=== PATIENT | female | born 1940 | race Caucasian/White ===

== ENCOUNTER 2020-01-07 07:48 | Inpatient (IN) | payer OTHER, MEDICAID ==
[~2020-01-07] VITALS: Ht 152.4 cm; Wt 79.4 kg
[~2020-01-07 07:48] MED LIST: ASPIR 8181 MG PO; COZAAR50 M1 PO; ELIQUIS5 MG PO; METFORMIN HCL500 M4 PO
[2020-01-07 07:52] VITALS: Ht 152.4 cm; Wt 79.4 kg
--- NOTE | 2020-01-07 08:02 | NUR ---
BIB DAUGHTER WITH SUDDEN ONSET ABDOMINAL PAIN. SEEN IN ED FOR PNEUMONIA RECENTLY. ALSO STATES LEG AND FEET SWELLING. COMFORT MEASURES AND SUPPORTIVE CARE INITIATED. PREP FOR ERMD MSE.
--- NOTE | 2020-01-07 09:18 | NUR ---
ST CATH URINE OBTAINED AND SENT. COVID NASOPHARYNGEAL SWAB OBTAINED AND SENT. PT TO CT. TO CONTINUE TO MONITOR,
--- NOTE | 2020-01-07 09:35 | NUR ---
PT RETURNED FROM CT.
[2020-01-07 09:38] LABS: ALKALINE PHOSPHATASE 341 U/L (46-116); ALT/SGPT 86 U/L (14-59); AST/SGOT 146 U/L (15-37); BILIRUBIN TOTAL 1.98 mg/dL (0.20-1.00); CALCIUM 8.3 mg/dL (8.5-10.1); CARBON DIOXIDE 19.1 mmol/L (21-32); CHLORIDE SERUM 96 mmol/L (98-107); CREATININE SERUM 1.2 mg/dL (0.6-1.0); GLUCOSE SERUM 111 mg/dL (74-106); LIPASE 75 IU/L (73-393); SODIUM SERUM 125 mmol/L (136-145); TOTAL PROTEIN, SERUM 7.5 g/dL (6.4-8.2)
[2020-01-07 09:43] LABS: BASOPHIL % 0.2 % (0-2); RED CELL DISTRIBUTION WIDTH 18.1 % (11.5-14.5)
[2020-01-07 09:46] LABS: ALBUMIN 2.2 g/dL (3.4-5.0); POTASSIUM SERUM 5.7 mmol/L (3.5-5.1)
[2020-01-07 10:28] LABS: PLATELET COUNT 26 x10^3mcL (130-400)
--- NOTE | 2020-01-07 11:10 | NUR ---
PATIENT ARRIVED FROM ER [facility]. PATIENT APPEARED TO BE IN PAIN. A&OX4, FOLLOWS COMMANDS AND COOPERATES WELL. DENIES CHEST PAIN AT THIS TIME. PERIPHERAL PULSES ALAPBLE W/ +2 PITTING EDEMA BLE. LUNG SOUNDS DIMINISHED BILATERALLY, ON RA, O2 SAT 94%, DENIES SOB. NORMOACTIVE BSX4, ABD SOFT AND FLAT. VOIDS USING RESTROOM, ALTHOUGH STATES GENERALIZED WEAKNESS. SKIN IS INTACT. ABD PAIN, WILL GIVE PAIN MEDICATION IF WARRANTED BY BLOOD PERSSURE. IV SITE ON LEFT HAND IS CDI RUNNING NS AT 70 ML/HR. WILL CONTINUE TO MONITOR.
[2020-01-07 11:39] VITALS: BP 96/69
--- NOTE | 2020-01-07 13:10 | NUR ---
SPOKE TO AEROSPACE CONTROL AND WARNING SYSTEMS INQUIRING FOR ANOTHER PAIN MED OTHER THAN MORPHINE SINCE HER BP RUNS LOW. [employer] [employer] STATED THAT SHE IS AWAITING RECOMMENDATION WITH PHARMACY DUE TO THE PATIENT'S LIVER HISTORY. INQUIRED WITH [employer] IF SHE WOULD WANT TO ORDER AN ASCITES EVAL PER CT ABD STATED THAT PATIENT HAS MILD TO MODERATE ASCITES. [facility] [employer] ORDERED ASCITES EVAL. NO FURTHER ORDERS AT THIS TIME. WILL CONTINUE TO MONITOR.
--- NOTE | 2020-01-07 15:26 | NUR ---
DR. HOWARD INQUIRED OF PATIENT STATUS. STATED THAT SHE WANTED BNP AND BMP TO BE REDRAWN STAT. ORDERED LOKELMA ONE TIME DOSE AND PROAMATINE TO BE ORDERED TWICE A DAY. NO FURTHER ORDERS AT THIS TIME, WILL CONTINUE TO MONITOR.
[2020-01-07 16:11] LABS: CARBON DIOXIDE 18.2 mmol/L (21-32); CHLORIDE SERUM 98 mmol/L (98-107); CREATININE SERUM 1.1 mg/dL (0.6-1.0); GLUCOSE SERUM 112 mg/dL (74-106); SODIUM SERUM 126 mmol/L (136-145)
[2020-01-07 16:14] LABS: POTASSIUM SERUM 5.7 mmol/L (3.5-5.1)
--- NOTE | 2020-01-07 16:22 | NUR ---
NOTIFIED BY LAB THAT K+ IS A CRITICAL LAB VALUE OF 5.7. NOTIFIED STRAIGHTENER THAT LOKELMA WAS ALREADY OREDERED BY DR. HOWARD. STRAIGHTENER ORDERED TO GIVE LOKELMA IS SCHEDULED. NO FURTHER ORDERS AT THIS TIME. WILL CONTINUE TO MONITOR.
[2020-01-07 17:40] VITALS: BP 102/73
--- NOTE | 2020-01-07 18:03 | NUR ---
INQUIRED WITH DR. HERBERT IF HE WOULD WANT TO ORDER A FOLLOW UP TROPONIN SINCE PATIENT'S TROPONIN THIS MORNING WAS 0.486. DR. HERBERT ORDERED ROUTINE TROPONIN LAB DRAW, AND EKG. TROPONIN ALSO ORDERED FOR 0200 01/08/20. NO FURTHER ORDERS AT THIS TIME.
--- NOTE | 2020-01-07 18:58 | NUR ---
RECEIVED CRITICAL LAB VALUE TROPONIN 0.410. WILL ENDORSE TO UPSCALE SECURITY OFFICER NURSE.
--- NOTE | 2020-01-07 19:39 | NUR ---
SPOKE TO DR. ESPINOZA. MADE AWARE OF TRENDING TROP, PLT 26, ORDER FOR ELIQIUIS AND PENDING LOVENOX TONIGHT. ASKED IF OKAY TO GIVE ANTICOAGULATION DESPITE PLT 26. STATED WILL CONSULT DR. LOJA AND TO HAVE RN ASK NIGHT TIME NANNY FOR RECOMMENDATIONS IN REGARDS TO ANTICOAGULATION.
--- NOTE | 2020-01-07 19:40 | NUR ---
REC'D PT FROM DAY NURSE. PT RESTING IN BED. AAOX4, SPEECH CLEAR, FOLLOWS COMMANDS. TELE 13. DENIES CP, DIZZINESS, OR PALPITATIONS. DENIES RESP DISTRESS OR SOB. BREATHING EVEN/UNLABORED ON RA. PITTING EDEMA BLE, ELEVATED WITH PILLOWS. ABD SOFT/DISTENDED. C/O 03/11 RUQ ABD PAIN AND TENDERNESS, WILL MEDICATE. DENIES N/V. VOIDING FREELY. GEN WEAKNESS. AMB WITH ASSIST. REPOSITIONS SELF. IV TO L THUMB PATENT AND INFUSING, SITE WNL. CALL LIGHT WITHIN REACH, BED AT LOWEST POSITION. WILL CONTINUE TO MONITOR.
--- NOTE | 2020-01-07 19:49 | NUR ---
SPOKE TO DR. ESPINOZA. STATED HE CONTACTED PHARMACY TO HAVE LOVENOX D/C'D. OKAY TO GIVE LOVENOX. RN DOES NOT HAVE TO CONTACT BINDER TECHNICIAN AT THIS TIME. MADE AWARE PT DOES NOT HAVE ANY ABX WITH PNA AND WBC 15.0.
--- NOTE | 2020-01-07 20:30 | NUR ---
ASSISTED PT TO BSC. GEN WEAKNESS. PT VOIDING AND HAD A MODERATE SIZED FORMED STOOL. ASSISTED BACK IN BED. BLE ELEVATED WITH PILLOWS. PT C/O RUQ ABD PAIN 03/11. MORPHINE GIVEN PER ORDER. CALL LIGHT WITHIN REACH, BED AT LOWEST POSITION.
[2020-01-07 20:56] VITALS: BP 94/59
--- NOTE | 2020-01-07 22:11 | NUR ---
SPOKE TO DR. ESPINOZA. INQUIRED REGARDING ADDING LASIX D/T 2+ BLE PITTING EDEMA WITH BNP 393. STATED WILL NOT ORDER NOW D/T EDEMA SECONDARY LIVER CA VERSUS CARDIC.
--- NOTE | 2020-01-08 01:23 | NUR ---
PT RESTING IN BED WITH EYES CLOSED. NO SIGNS OF DISTRESS OR PAIN NOTED. BREATHING EVEN/UNLABORED ON RA. HOB UP. CALL LIGHT WTIHIN REACH, BED AT LOWEST POSITION. WILL CONTINUE TO MONITOR.
--- NOTE | 2020-01-08 02:50 | NUR ---
SPOKE TO DR. ESPINOZA. MADE AWARE DR. HOWARD HAD PUT ORDERS IN FOR LOKELMA NOW. FIRST DOSE OF LOKELMA GIVEN 01/06 @ 1630 (K 5.9 @ 1530). K HAS NOT BEEN RECHECKED S/P LOKELMA. ASKED RESIDENT IF HE WOULD LIKE TO ADMINISTER LOKELMA PRIOR TO RECHECKING K. ORDERED TO HOLD FOR NOW AND WAIT FOR AM LABS.
[2020-01-08 04:04] LABS: BASOPHIL % 0.4 % (0-2)
[2020-01-08 04:12] LABS: RED CELL DISTRIBUTION WIDTH 16.7 % (11.5-14.5)
[2020-01-08 04:23] LABS: CALCIUM 8.1 mg/dL (8.5-10.1); CARBON DIOXIDE 22.3 mmol/L (21-32); CHLORIDE SERUM 97 mmol/L (98-107); CREATININE SERUM 1.2 mg/dL (0.6-1.0); GLUCOSE SERUM 112 mg/dL (74-106); SODIUM SERUM 127 mmol/L (136-145)
[2020-01-08 04:25] LABS: POTASSIUM SERUM 5.9 mmol/L (3.5-5.1)
[2020-01-08 04:35] LABS: PLATELET COUNT 23 x10^3mcL (130-400)
[2020-01-08 06:55] VITALS: BP 125/72
--- NOTE | 2020-01-08 06:58 | NUR ---
PT AWAKE AND RESTING IN BED. DENIES ANY PAIN CURRENTLY. BREATHING EVEN/UNLABORED ON RA. ASSISTED PT TO BSC TO VOID. DARK [place] URINE. NO SIGNIFICANT CHANGES DURING SHIFT. PENDING COVID RESULTS. CALL LIGHT WITHIN REACH, BED AT LOWEST POSITION. WILL ENDORSE TO DAY NURSE.
--- NOTE | 2020-01-08 07:30 | NUR ---
PT ENDORSE TO ME THIS MORNING, LAYING IN BED RESTING, AA/O X4 BELIZEAN SPKING, REAMINS ON ISOLATION.BREATHING EVEN AND UNLABORED ON RA/ NO ACUTE RESP DISTRESS OR SOB NOTED. TELE 13 NSR / DENIES ANY CP OR PRESSURE. EDEMA NOTED BLE +2 NOTED /REMAINS ON ELIQUIS. BOWEL SOUNDS ACTIVE IN ALL FOUR QUADS, LAST /7 FORMED. VOIDS FREELY/ KNOWS TO CALL FOR ASSIST/ FWW AT HOME. IV TO THE LW INTACT AND PATENT/ WILL CONTINUE TO MONITOR.
[2020-01-08 10:00] VITALS: BP 124/67
--- NOTE | 2020-01-08 10:30 | NUR ---
PER MORGUE KEEPER JOCE CHERRY WAS GIVEN THIS AM
[2020-01-08 11:30] LABS: CALCIUM 8.4 mg/dL (8.5-10.1); CHLORIDE SERUM 95 mmol/L (98-107); CREATININE SERUM 1.3 mg/dL (0.6-1.0); GLUCOSE SERUM 112 mg/dL (74-106); POTASSIUM SERUM 4.8 mmol/L (3.5-5.1); SODIUM SERUM 126 mmol/L (136-145)
[2020-01-08 13:09] VITALS: BP 110/76
--- NOTE | 2020-01-08 14:00 | NUR ---
PT TOLERATED 100% OF LUNCH,ASSISTED PT WITH ADLS, CHANGED BED PAD TO BED AND BLANKETS. WILL CONTINUE TO MONITOR.
--- NOTE | 2020-01-08 17:03 | NUR ---
PT C/O BLE PAIN 5/10, MEDICATED PER EMAR. WILL CONTINUE TO MONITOR.
[2020-01-08 18:02] VITALS: BP 115/73
--- NOTE | 2020-01-08 18:30 | NUR ---
NO ACUTE CHANGES AT THIS TIME, NO ACUTE RESP DISTRESS OR SOB NOTED, SATING AT 97% RA/ APPLIED 1L NC FOR COMFORT. IV TO THE L WRIST INTACT AND PATENT / NO REDNESS OR SWELLING NOTED. WILL ENDORSE TO INCOMING RN.
--- NOTE | 2020-01-08 21:10 | NUR ---
PT IN NO ACUTE DISTRESS. EVEN AND UNLABORED BREATHING, ROOM AIR. PT DENIES ANY PAIN, CHEST PAIN AT THIS MOMENT. DENIES ANY SOB. PT WAS ASSISTED TO REPOSITION. TELE #13, HR 85, NSR. DROPLET AND CONTACT PRECAUTIONS IN PLACE. LEFT WRIST IV PATENT AND INFUSING WELL. BED IN LOWEST POSITION. CALL LIGHT WITHIN REACH.
[2020-01-08 22:08] VITALS: BP 103/61
--- NOTE | 2020-01-09 01:43 | NUR ---
PT REPOSITIONED IN BED, STILL NOT COMFORTABLE SO SHE ASKED TO SIT AT BEDSIDE FOR A WHILE. PATIENT WAS MADE AWARE TO USE CALL [place] WHEN SHE IS READY TO BE PUT BACK INTO BED.
--- NOTE | 2020-01-09 04:30 | NUR ---
PT HAS A NOSE BLEED. PAGED DR. ESPINOZA, WAITING ON A CALL BACK. WILL CONTINUE TO MONITOR.
--- NOTE | 2020-01-09 04:44 | NUR ---
SPOKE TO DR ESPINOZA ABOUT PTS BLOODY NOSE. HE WAS ALSO INFORMED OF HER PREVIOUSLY COUGHING UP BLOOD. REASSESSED PT AND SHE IS NOT ACTIVELY BLEEDING. DR ESPINOZA ORDERED TO PACK PTS NOSE IF SHE BEGINS TO BLEED AGAIN.
--- NOTE | 2020-01-09 05:26 | NUR ---
I HAVE REVIEWED THE DATA COLLECTION BY liane (NAME): leobardo ruff ENTERED ON (DATE/TIME):01/09/2020 0230h I CONCUR WITH THE DATA AND ANY EXCEPTIONS OR COMMENTS ARE LISTED BELOW:
[2020-01-09 06:51] VITALS: BP 91/63
[2020-01-09 08:14] LABS: BASOPHIL % 0.9 % (0-2)
[2020-01-09 08:34] LABS: CARBON DIOXIDE 23.3 mmol/L (21-32); CHLORIDE SERUM 98 mmol/L (98-107); CREATININE SERUM 1.3 mg/dL (0.6-1.0); GLUCOSE SERUM 105 mg/dL (74-106); POTASSIUM SERUM 4.4 mmol/L (3.5-5.1); RED CELL DISTRIBUTION WIDTH 18.8 % (11.5-14.5); SODIUM SERUM 130 mmol/L (136-145)
[2020-01-09 09:49] VITALS: BP 94/65
[2020-01-09 10:35] LABS: PLATELET COUNT 14 x10^3mcL (130-400)
--- NOTE | 2020-01-09 12:51 | NUR ---
RESTING IN NO ACUTE DISTRESS, STILL HAVING NOSE BLEED ON AND OFF. MD AWARE, ICE MARE APPLIED WITH RELIEF. VS WNL. IVF INFUSING WELL.
[2020-01-09 12:52] VITALS: BP 98/64
--- NOTE | 2020-01-09 15:49 | NUR ---
Initial Nutrition Assessment: 240T/B MYRA VALLECILLO 79F HR IA Dx: Hyponatremia, hyperkalemia, metastatic liver cancer PMHx: HTN, Bilateral PE, Liver Cancer, T2DM PSHx: none noted Labs: (01/08) BUN 39H, Cr 1.3, Na 130L, Ca 8.0L, (01/06) Bilirubin 1.98H, AST 146H, ALT 86H, Alk ph 341H Meds: Eliquis, Pro-amatine, Rocephin, Sodium bicarbonate, Sodium chloride, Zotrhomax PRN meds: D50%, Humulin, Morphine, Ultram, Ventolin, Zofran Diet: CCHO 60 PO intake since admission: No entry Ht: 152.4cm/60in Wt: 65.5kg/144.10lbs BMI: 27.3 Bed scale: Not able to obtain IBW: 45kg/100lbs %IBW: 146% ABW: 50kg UBW: not able to obtain Age: 79 Food Allergies: not able to obtain Edema: +2 edema to BLE Last BM: 01/06 Skin: skin intact Alex: 16 Per H and P (01/06), This is a 79-year old female who is well known to me from previous admission. Patient was recently discharged from this hospital on 11/16/2019 who was found to have bilateral PE. Patient kept on heparin drip. Patient was also noted with liver mass and follows up with outpatient oncologist. Patient presented to the ER with complains of abdominal pain associated with distention denies any nausea or vomiting. Patient is scheduled to have a follow up appointment with oncologist tomorrow however, patient could not tolerate the pain. Patient denies any fevers, short of breath. When patient arrived in the ER CT abdomen showed Peripheral groundglass in the bilateral lung bases concerning for pulmonary infarction or possible atypical infection (COVID-19). Patient denies any recent travel outside of the [place] or sick contacts. RD Note (01/08) Per progress note (01/07), pt was on room air, and had an episode of epistaxis this morning. Pt is a COVID r/o, and ascites was noted in progress note. Pt was in isolation, talked to pt's primary RN for information. Per RN, pt did not exhibit GI distress, but pt had poor appetite, and she had only a small portion of each kind of food. RN also reported that pt might have some missing teeth. Problem with: N/V/D/C: None per RN Problems with: Chewing: Pt has missing teeth Swallowing: No per RN Current appetite: Poor per RN Recent wt change: not able to obtain %wt change: not able to obtain Height: not able to obtain Vitamin/Supplement use: not able to obtain Special diet at home: not able to obtain Physical activity: not able to obtain Nutrition education given (specify specific nutrition education and handout given): n/a Food-drug interactions? Education given? n/a Estimated Nutritional Needs Based on current body weight (65kg) Energy: 6297-9615 kcal/day (25-30 kcal/kg for maintenance) Protein: 65-97g/day (1-1.5g/kg for LBM preservation and liver CA) Fluid: 1097-7663 mL/day (25-35 mL/kg) Nutrition Diagnosis: 1. Inadequate energy and protein intake r/t poor PO intake a/e/b pt has poor PO intake per RN. 2. Altered nutrition related lab values r/t fluid imbalance and pathophysiological cause a/e/b +2 edema to BLE, decreased Na, CL level. Intervention 1. Recommend continue CCHO 60 diet 2. Recommend Glucerna TID for poor PO intake. It will provide additional 660kcal and 30g protein. Monitor/Evaluate Goal: PO intake at least 75% of estimated needs Monitor: PO intake, Labs, GI function, Body weight F/U in 2-3 days as risk 01/10-
--- NOTE | 2020-01-09 15:49 | NUR ---
1. Recommend continue CCHO 60 diet 2. Recommend Glucerna TID for poor PO intake. It will provide additional 660kcal and 30g protein.
[2020-01-09 17:59] VITALS: BP 103/64
--- NOTE | 2020-01-09 18:15 | NUR ---
REMAINS IN NO DISTRESS, AWAKE AND ALERT. MILD SOB NOTED WITH ACTIVITIES. NO CHANGES IN VS. IVF INFUSING TO KVO AND SITE CLEAR. NO C/O PAIN OR DISCOMFORT AT THIS TIME. PM CARE DONE. CALL LIGHT WITHIN REACH.
--- NOTE | 2020-01-09 19:40 | NUR ---
RECEIVED PT FROM PREVIOUS SHIFT. PT IN NO ACUTE DISTRESS. EVEN AND UNLABORED BREATHING, ROOM AIR/NC 1L. PATIENT ALERT, AWAKE, ORIENTED X4. IV LW PATENT, INTACT, INFUSING WELL. NO REDNESS OR EDEMA AT IV SITE. NS @ 30 ML/HR. PT STILL REMAINS WITH GERNERALIZE WEAKNESS, SHE WAS INSRUCTED TO USE CALL LIGHT NEEDED. PT HAS OCCASIONAL NOSE BLEED. NO ACTIVE BLEEDING AT THIS TIME. DR ESPINOZA AWARE. MORNING SHIFT INSTRUCTED DR EMMIE CHERRY BE HELD. WILL HOLD PER [facility] DR RIDLEY. PT DENIES ANY PAIN, CHEST PAIN AT THIS MOMENT. BED IN LOWEST POSITION AND CALL LIGHT WITHIN REACH.
[2020-01-09 20:10] VITALS: BP 99/63
--- NOTE | 2020-01-10 00:25 | NUR ---
PT REMAINS IN NO ACUTE DISTRESS. NO C/O CHEST PAIN, PAIN AT THIS MOMENT. NO ACTIVE BLEEDING AT THIS MOMENT. DROPLET AND CONTACT PRECUATIONS REMAIN IN PLACE. BED IN LOWEST POSITION, CALL LIGHT WITHIN REACH.
--- NOTE | 2020-01-10 05:38 | NUR ---
PT WAS GIVEN A BED BATH. CHANGED ALL LINEN. NOSE IS NO LONGER BLEEDING AT THIS MOMENT. PT IN NO ACUTE DISTRESS. EVEN AND UNLABORED BREATHING. IV PATENT AND INFUSING WELL. NO REDNESS AT IV SITE. SHE IS CURRENTLY ON NC 1L, 98%. NO C/O CHEST PAIN, PAIN, SOB AT THIS MOMENT. WILL ENDORSE CARE TO INCOMING NURSE. WILL CONTINUE TO MONITOR.
[2020-01-10 05:43] VITALS: BP 109/70
--- NOTE | 2020-01-10 05:43 | NUR ---
I HAVE REVIEWED THE DATA COLLECTION BY ZACK (NAME): MARGAUX FAYE ENTERED ON (DATE/TIME):01/10/2020 0023H I CONCUR WITH THE DATA AND ANY EXCEPTIONS OR COMMENTS ARE LISTED BELOW:
[2020-01-10 06:43] LABS: CALCIUM 8.2 mg/dL (8.5-10.1); CARBON DIOXIDE 20.9 mmol/L (21-32); CHLORIDE SERUM 99 mmol/L (98-107); CREATININE SERUM 1.3 mg/dL (0.6-1.0); GLUCOSE SERUM 110 mg/dL (74-106); POTASSIUM SERUM 4.2 mmol/L (3.5-5.1); SODIUM SERUM 130 mmol/L (136-145)
--- NOTE | 2020-01-10 07:30 | NUR ---
RECEIVED PT FROM BRANCH OPERATIONS SPECIALIST. PT AWAKE, ALERT A/OX4. DENIED HEADACHE. PT ON ROOM AIR WITH NO RESP DISTRESS NOTED. O2 SAT 95%. PT DENIES CHEST PAIN. IV ACCESS LW 22G, CDI INFUSING NS AT 30ML/HR. PERIPHERAL PULSES TO BUE PALPABLE, 4+ PITTING EDEMA NOTED TO BLE. 3+ EDEMA TO BUE. PT NOTED TO HAVE DISTENDED ABDOMEN WITH ACTIVE BS NOTED. DENIES ISSUES WITH ELIMINATION. PT INCONTINENT OF URINE. PT NOTED TO HAVE GENERALIZED WEAKNESS. DENIES PAIN AT THIS TIME. SAFETY MEASURES IN PLACE, BED LOW AND LOCKED. CALL LIGHT WITHIN REACH.
[2020-01-10 07:41] LABS: BASOPHIL % 0.4 % (0-2); RED CELL DISTRIBUTION WIDTH 18.4 % (11.5-14.5)
--- NOTE | 2020-01-10 07:47 | NUR ---
LAB CALLED, CRITICAL PLATELETS 13
[2020-01-10 07:48] LABS: PLATELET COUNT 13 x10^3mcL (130-400)
--- NOTE | 2020-01-10 08:10 | NUR ---
ZACK PRETTY AWARE OF PLATELETS
--- NOTE | 2020-01-10 08:48 | NUR ---
DR GARCIA AT BEDSIDE. AWARE PT PLATELETS 13, VERBAL ORDER GIVEN TO TRANSFUSE 2 UNITS PLATELETS.
[2020-01-10 09:30] VITALS: BP 89/62
--- NOTE | 2020-01-10 09:35 | NUR ---
PT BP 89/62, SCHEDULED MIDODRINE ADMINISTERED AT THIS TIME ORDERED. PT AWAKE, ALERT. WILL MONITOR.
--- NOTE | 2020-01-10 09:58 | NUR ---
DUE MEDICATIONS ADMINISTERED. PT TOLERATED WELL. PT STATES SHE WANTS HER DAUGHTER IN LAW TO SIGN CONSENT FOR PLATELET TRANSFUSION. PT INCONTINENT OF URINE. PT CLEANED AND REPOSITIONED. PT HAD NOSE BLEED.
--- NOTE | 2020-01-10 10:14 | NUR ---
PATIENT WANTS DAUGHTER IN LAW, MYRA SMITH TO GIVE CONSENT FOR TRANSFUSION. CONSENT TO TRANSFUSE RECEIVED OVER THE PHONE WITH SECOND RN, BENY. PATIENT AWARE OF PROCEDURE.
[2020-01-10 12:00] VITALS: BP 107/71
--- NOTE | 2020-01-10 12:00 | NUR ---
[facility] CALLED SAYS NO PLATELETS ARE AVAILABLE FOR THIS PATIENT. ZACK ENVIRONMENTAL STUDIES FACULTY MEMBER AWARE. PT CONSTIPATED, ZACK AWARE.
--- NOTE | 2020-01-10 15:18 | NUR ---
PT UP IN WHEELCHAIR AT BEDSIDE. PT COMPLAINING OF PAIN TO RUQ ABDOMEN. ULTRAM ADMINISTERED ORDERED PRN. WILL MONITOR.
[2020-01-10 15:30] VITALS: BP 108/74
--- NOTE | 2020-01-10 16:49 | NUR ---
PT PUT BACK TO BED. DUE MEDICATIONS ADMINISTERED. PT REPORTS PAIN IS TOLERABLE AT THIS TIME. NO ACUTE DISTRESS NOTED. SAFETY MAINTAINED.
--- NOTE | 2020-01-10 18:51 | NUR ---
PT NOTED TO HAVE CONSISTENT NOSEBLEED. SMALL AMOUNTS THROUGHOUT DAY. ZACK MADE AWARE THIS AM. AWAITING PLATELETS FOR TRANSFUSION. ALL NEEDS TENDED TO THROUGHOUT SHIFT. WILL CONTINUE TO MONITOR AND ENDORSE CARE TO INTERNATIONAL TRADE TEACHER.
[2020-01-10 19:20] VITALS: BP 105/65
[2020-01-11] VITALS (8 sets, daily range): BP systolic 102–111; BP diastolic 58–75
--- NOTE | 2020-01-11 01:25 | NUR ---
FIRST UNIT OF PLATELETS INITIATED, VSS, WILL MONITOR FOR 15 MINIUTES
--- NOTE | 2020-01-11 01:40 | NUR ---
15 AFTER PLATELETS INITIATED, NO SIGNS OF REACTION, VSS, ALL PT NEEDS ATTENDED TO AT THIS TIME, SAFETY PRECAUTIONS IN PLACE, WILL CONTINUE TO MONITOR
--- NOTE | 2020-01-11 03:15 | NUR ---
FIRST UNIT OF PLATELETS FINISHED, VSS, NO SIGNS OF REACTION, SAFETY PRECAUTIONS IN PLACE, WILL CONTINUE TO MONITOR
--- NOTE | 2020-01-11 03:32 | NUR ---
INITIATED SECOND UNIT OF PLATELETS, VSS OBSERVING FOR 15 MIN, SAFETY PRECAUTIONS IN PLACE.
--- NOTE | 2020-01-11 03:47 | NUR ---
15 MINUTES AFTER INITIATION OF SECOND UNIT OF PLATELETS, PT STABLE AND VSS, NO SIGNS OF REACTION, WILL CONTINUE TO MONITOR
--- NOTE | 2020-01-11 06:29 | NUR ---
PT PLATELETS FINISHED, NO SIGNS OF TRANSFUSION REACTION, PT RESTED THROUGH THE NIGHT AND HAD NO COMPLAINTS OF PAIN UNTIL THIS MORNING THAT WAS TREATED WITH ULTRAM, PT HAD NO EPISODES OF SOB, RESPIRATIONS REMAINED EVEN AND UNLABORED, ALL PT NEEDS WERE ATTENDED TO THROUGH THE NIGHT, THE PT NOSE BLED PERIODICALLY THROUGH THE NIGHT AND MD AWARE, SAFETY PRECAUTIONS IN PLACE, WILL CONTINUE TO MONITOR AND ENDORSE CARE TO ONCOMING SHIFT
--- NOTE | 2020-01-11 08:10 | NUR ---
RECIEVED REPORT FROM [facility] NURSE. PATIENT IS AWAKE ALERT AND ORIENTED. PATIENT HAS A VERY LOW PLT COUNT PER YESTERDAY MORNING LABS. PLT AT 13. PATIENT HAS MULTIPLE BRUISES ACROSS BILATERAL UPPER EXTREMITIES CONSISTENT WITH LOW PLT. PATIENT IS SENEGAL[place] SPEAKING ABLE TO MAKE NEEDS KNOWN. MORNING VITALS STABLE. NO REPORT OF PAIN AT THIS TIME. PATIENT IS ON DROPLET ISOLATION PRECAUTIONS DUE TO RULE OUT COVID- 19. PATIENT HAS A DRY COUGH AND IS CURRENTLY ON ROOM AIR SATURATING AT 94%. WILL CONTINUE TO PROVIDE CARE FOR PATIENT.
[2020-01-11 09:23] LABS: PLATELET COUNT 68 x10^3mcL (130-400); RED CELL DISTRIBUTION WIDTH 17.9 % (11.5-14.5)
[2020-01-11 09:24] LABS: BASOPHIL % 0 % (0-2)
--- NOTE | 2020-01-11 11:41 | NUR ---
COVID 19 RESULTS REVEALING NEGATIVE TEST RESULTS. DR. GARCIA NOTIFIED AND AWARE. ISOLATION PRECAUTIONS REMOVED PER ORER.
[2020-01-11 13:32] LABS: CARBON DIOXIDE 22.5 mmol/L (21-32); CHLORIDE SERUM 99 mmol/L (98-107); CREATININE SERUM 1.2 mg/dL (0.6-1.0); GLUCOSE SERUM 151 mg/dL (74-106); POTASSIUM SERUM 4.4 mmol/L (3.5-5.1); SODIUM SERUM 130 mmol/L (136-145)
--- NOTE | 2020-01-11 15:18 | NUR ---
SPOKE WITH NURSE PRACTIONER REGARDING WBC COUNT AND NURSE PRACTIONER IS RECOMMENDING NO CHANGE IN ORDERS AT THIS TIME THE PATIENT IS AFEBRILE. ALSO SPOKE WITH NURSE PRACTIONER REGARDING SODIUM LEVEL OF 130, NURSE PRACTIONER RECOMMENDING NO FURTHER ORDERS AT THIS TIME. 2 GM SODIUM PO DISCONTINUED AT THIS TIME PER EARLIER ORDER. NURSE PRACTIONER RECOMMENDS NO CHANGE IN ORDERS AT THIS TIME.
--- NOTE | 2020-01-11 17:47 | NUR ---
PER DR. TORRES, PATIENT IS TO BE PLACED BACK ON DROPLET ISOLATION PRECAUTIONS PENDING SECOND COVID-19 TEST RESULTS.
--- NOTE | 2020-01-11 18:31 | NUR ---
PATIENT CURRENTLY OBSERVED RESTING IN BED. PATIENT HAS HAD INTERMITTENENT EPISTAXIS THROUGHOUT SHIFT. PATIENT PLACED BACK ON ISOLATION PRECAUTIONS PER INFECTIOUS DISEASE RECOMMENDATION. SPOKE WITH DR. TORRES REGARDING PATIENT'S INTERMITTENT EPISTAXIS AND DR. TORRES RECOMMENDS RETRIEVING SECOND SPECIMEN FOR COVID-19 TESTING VIA PHARYNGEAL SWAB. IV CURRENTLY SALINE LOCKED TO THE RIGHT HAND. PATIENT CONTINUES TO HAVE DRY COUGH THROUGHOUT SHIFT. ISOLATION PRECAUTIONS CURRENTLY IN PLACE. CALL LIGHT WITHIN REACH. WILL ENDORSE ALL FURTHER CARE TO THE NOC NURSE.
--- NOTE | 2020-01-11 19:50 | NUR ---
PT. AWAKE, ALERT, ORIENTED X4. SPEECH CLEAR, CONVERSATION APPROPRIATE. PT. ABLE TO MAKE NEEDS KNOWN. DENIES HEADACHE OR DIZZINESS. BREATH SOUNDS CLEAR THROUGHOUT LUNG LASSITER, RESP. EVEN, UNLABORED. BLL DIMINISHED. PT. ON ROOM AIR AT THIS TIME. NO SOB NOTED. PT. HAD INTERMITTENT NOSE BLEED THROUGHOUT THE DAY. NO BLEEDING NOTED AT THIS TIME. PT. W/ PITTING EDEMA TO BLE THAT EXTENDS UPWARDS TOWARDS KNEES, 3-4+ EDEMA W/ SOME PITTING. +1-2 EDEMA NOTED TO BUE. SCATTERED ECCYMOSIS TO BUE. ABD. SOFT AMD ROUND, SLIGHTLY DISTENDED, BOWEL SOUNDS ACTIVE. DENIES ABD. PAIN, DENIES NAUSEA. IV HEPLOCKED, SITE INTACT. CALL LIGHT WITHIN REACH.
--- NOTE | 2020-01-12 | NUR ---
PT. RESTING QUIETLY. EYES CLOSED AND APPEARS TO BE SLEEPING. CALL LIGHT REMAINS WITHIN REACH. WILL CONTINUE TO MONITOR.
--- NOTE | 2020-01-12 02:29 | NUR ---
PT. C/O HAVING URGENCY TO HAVE BM, BUT DIFFICULT WHILE LAYING IN BED. PT. ASSITED TO BSC AND WAS STILL UNABLE TO HAVE BM. PT. ASKED TO BE LEFT ON JOSEMANUEL PAD AND WILL CALL IF SHE HAS BM.
[2020-01-12 06:07] VITALS: BP 95/68; BP 95/78
--- NOTE | 2020-01-12 06:11 | NUR ---
PT. ASSISTED W/ REPOSITIONING AND MADE COMFORTABLE IN BED. NO BM FOR PT. THROUGHOUT THE NIGHT. DENIES ABD. PAIN. NO RESP. DISTRESS. PT. REMAINS ON ROOM AIR. IV HEPLOCKED, SITE INTACT. CALL LIGHT WITHIN REACH. WILL ENDORSE PT CARE TO INCOMING NURSE.
[2020-01-12 07:36] LABS: CALCIUM 7.9 mg/dL (8.5-10.1); CARBON DIOXIDE 21.3 mmol/L (21-32); CHLORIDE SERUM 100 mmol/L (98-107); CREATININE SERUM 1.1 mg/dL (0.6-1.0); GLUCOSE SERUM 92 mg/dL (74-106); POTASSIUM SERUM 4.5 mmol/L (3.5-5.1); SODIUM SERUM 131 mmol/L (136-145)
[2020-01-12 07:50] VITALS: BP 119/61
--- NOTE | 2020-01-12 08:00 | NUR ---
RECIEVED REPORT FROM [facility] NURSE PATIENT CURRENTLY AWAKE ALERT AND ORIENTED AND IN BED. PATIENT REMAINS ON ISOLATION PRECAUTIONS FOR RULE OUT COVID-19 SECOND TEST PENDING, FIRST TEST NEGATIVE RESULT. NO COUGH OR SOB AT THIS TIME. VITAL SIGNS STABLE. PATIENT IS AFEBRILE AT THIS TIME. IV TO THE RIGHT HAND CURRENTLY SALINE LOCKED. NO REPORT OF PAIN AT THIS TIME. NO SIGNS OR SYMPTOMS OF DISCOMFORT. PATIENT CONTINUES TO HAVE BILATERAL UPPER AND LOWER EXTREMITY. LUNG SOUNDS CLEAR TO AUSCULTATION, PATIENT SATURATING AT 96% ON ROOM AIR.
[2020-01-12 09:05] LABS: BASOPHIL % 0.3 % (0-2)
[2020-01-12 09:06] LABS: PLATELET COUNT 20 x10^3mcL (130-400); RED CELL DISTRIBUTION WIDTH 18.5 % (11.5-14.5)
--- NOTE | 2020-01-12 09:56 | NUR ---
SPOKE WITH NURSE PRACTIONER REGARDING SODIUM LEVEL OF 131, NO FURTHER ORDERS AT THIS TIME FROM WAREHOUSE MAN PATIENT IS STABLE. SPOKE WITH WAREHOUSE MAN REGARDING PLT COUNT OF 20, NO FURTHER ORDERS FROM WAREHOUSE MAN AT THIS TIME. POSSIBLE TRANSFUSION OF PLATELETS IF COUNT FALLS BELOW 14.
--- NOTE | 2020-01-12 10:14 | NUR ---
PHYSICAL ASSESSMENT REVEALED RIGHT FOOT ALTERATION. SKIN PEELING ON TOP OF RIGHT FOOT WITH SURROUNDING ECHYMOSIS. WILL TAKE PICTURES AND WRAP RIGHT FOOT EXTREMTIY WITH NON ADHERENT PAD AND GAUZE BANDAGE. CURRENTLY AWAITING FUTHER ORDERS FROM NURSE PRACTIONER REGARDING MANAGEMENT FOR PATIENT'S EDEMA.
--- NOTE | 2020-01-12 11:11 | NUR ---
Follow-up Nutrition Assessment: Dx: hyponatremia, hyperkalemia, metastatic liver cancer PMHx: HTN, bilat PE, liver cancer, T2DM Labs: (01/11) Na 131, K 4.5, Glu 92, BUN 45, Cr 1.1, H/H 11.0/33 Meds: D50%/water, Eliquis, Humulin R, lactulose, rocephin, sodium chloride 0.9%, Zofran Diet: CCHO 60 gm PO Intake: Skin: ecchymosis to BUE, per RN note (01/11) - rt foot alteration, skin peeling on top of rt foot with surrounding ecchymosis. Alex: 16 Edema: +3-4 edema to BLE, pitting, edema extends upward towards thighs & +1-2 edema BUE GI: Bowel sounds active in all quadrants Last BM: 01/10/20 RD Note (01/11): Per consultation noted (01/10), Pt was seen by nephrology- CKD with possible BRIANA noted; COVID 19 test is negative. Wt fluct anticipated d/t present of edema. Per Nursing documentation, Na 131 discussed with PROCEDURES RN, no further orders. Pt on iso precautions to r/o COVID19; first test negative result. No cough or SOB at this time, afebrile. Per RDN/RN discussion over phone, Pt was eating well yesterday as well as today. Pt has not displayed any difficulty with being able to consume food provided; no chewing/swallowing difficulty evident. No GI distress at this time. Estimated Nutritional Needs Based on current body weight of 65 kg. Energy: 4663-7154 kcal/d (25-30 kcal/kg for maintenance) Protein: 65-97 gm/d (1-1.5 gm/kg for LBM preservation and liver CA) Fluid: 7564-8005 mL/d (1 mL/kcal) or per MD. Nutrition Diagnosis 1. Inadequate energy and protein intake related to poor PO intakes as evidenced by Pt has poor PO intakes per RN. (Ongoing) 2. Altered nutrition-related lab values related to fluid imbalance and pathophysiological causes as evidenced by +2 edema to BLE, decreased Na and Cl level. (Ongoing) Intervention/RDN Recommendation(s): 1. Recommend continue CCHO 60 gm diet as tolerated. 2. Recommend continue Glucerna Shake 1 bottle with meals TID. This provides additional 660 kcal and 30 gm protein to help meet nutrition needs. Monitor/Evaluate Goal: Intake via PO intakes to meet at least 75% of estimated needs with acceptable tolerance within 2-3 days. Monitor: PO intakes and/or nutrition support tolerance, Labs, GI function, Skin integrity, Weights. F/U in 3-5 days as moderate risk (01/14-01/16)
--- NOTE | 2020-01-12 11:15 | NUR ---
PICTURES TAKEN OF RIGHT FOOT EXTREMITY AND PLACED IN CHART. RIGHT FOOT WRAPPED WITH GAUZE PAD AND GAUZE BANDAGE PATIENT ASSISTED TO THE BATHROOM, PATIENT HAD BLACK TARRY STOOL BOWEL MOVEMENT.
--- NOTE | 2020-01-12 11:25 | NUR ---
Follow-up Nutrition Assessment: Dx: hyponatremia, hyperkalemia, metastatic liver cancer PMHx: HTN, bilat PE, liver cancer, T2DM Labs: (01/11) Na 131, K 4.5, Glu 92, BUN 45, Cr 1.1, H/H 11.0/33 Meds: D50%/water, Eliquis, Humulin R, lactulose, rocephin, sodium chloride 0.9%, Zofran Diet: CCHO 60 gm PO Intake: Skin: ecchymosis to BUE, per RN note (01/11) - rt foot alteration, skin peeling on top of rt foot with surrounding ecchymosis. Alex: 16 Edema: +3-4 edema to BLE, pitting, edema extends upward towards thighs & +1-2 edema BUE GI: Bowel sounds active in all quadrants Last BM: 01/10/20 RD Note (01/11): Per consultation noted (01/10), Pt was seen by nephrology- CKD with possible BRIANA noted; COVID 19 test is negative. Wt fluct anticipated d/t present of edema. Per Nursing documentation, Na 131 discussed with PROFESSOR OF RHETORIC, no further orders. Pt on iso precautions to r/o COVID19; first test negative result. No cough or SOB at this time, afebrile. Estimated Nutritional Needs Based on current body weight of 65 kg. Energy: 4492-7006 kcal/d (25-30 kcal/kg for maintenance) Protein: 65-97 gm/d (1-1.5 gm/kg for LBM preservation and liver CA) Fluid: 4604-8515 mL/d (1 mL/kcal) or per MD. Nutrition Diagnosis 1. Inadequate energy and protein intake related to poor PO intakes as evidenced by Pt has poor PO intakes per RN. (Ongoing) 2. Altered nutrition-related lab values related to fluid imbalance and pathophysiological causes as evidenced by +2 edema to BLE, decreased Na and Cl level. (Ongoing) Intervention/RDN Recommendation(s): 1. Recommend continue CCHO 60 gm diet as tolerated. 2. Recommend continue Glucerna Shake 1 bottle with meals TID. This provides additional 660 kcal and 30 gm protein to help meet nutrition needs. Monitor/Evaluate Goal: Intake via PO intakes to meet at least 75% of estimated needs with acceptable tolerance within 2-3 days. Monitor: PO intakes and/or nutrition support tolerance, Labs, GI function, Skin integrity, Weights. F/U in 3-5 days as moderate risk (01/14-01/16)
--- NOTE | 2020-01-12 13:00 | NUR ---
SEEN BY DR KIRK. RECEIVED ORDERS FOR ALBUMIN 25%, 50 ML Q 8 HR X 8 DOSES ONLY. PATIENT TO RECEIVE DOSE OF IV LASIX ORDERED EARLIER AFTER 1ST DOSE OF AMBUMIN HAD BEEN ADMINISTERED.
[2020-01-12 18:56] VITALS: BP 103/70
--- NOTE | 2020-01-12 18:57 | NUR ---
PATIENT CURRENTLY AWAKE ALERT AND ORIENTED. DRY COUGH NOTED. CURRENTLY SALINE LOCKED TO THE RIGHT HAND. PATIENT CURRENTLY DIURESING ON LASIX DUE TO SEVERE BLUE AND BLLE EDEMA. PER NEPHROLOGY TRANSFUSE PLATELETS IF PLATELETS < 14. NO REPORT OF PAIN AT THIS TIME. PATIENT REMAINS ON ISOLATION PRECAUTIONS PENDING SECOND COVID-19 RESULTS. WILL ENDORSE ALL FURTHER CARE TO THE NOC NURSE.
--- NOTE | 2020-01-12 19:40 | NUR ---
PT. SITTING UP IN BED, STATED THAT SHE IS MORE COMFORTABLE IN UPRIGHT POSITION. PT. ORIENTED X4. DENIES HEADACHE OR DIZZINESS. ABLE TO MAKE NEEDS KNOWN. BREATH SOUNDS CLEAR THROUGHOUT LUNG LASSITER, RESP. EVEN, UNLABORED. NO SOB NOTED. BLL SLIGHTLY DIMINISHED. O2 SAT. 97% RA. ABD. SOFT AND ROUND, BOWEL SOUNDS ACTIVE. DENIES ABD.PAIN, DENIES NAUSEA. PEDAL PULSES VERY WEAK. DIFFICULT TO PALPATE R/T GROSS EDEMA TO BLE , 3-4+, PITTING. BUE WITH 1-2 EDEMA. IV SITE LEAKING. IV CATH REMOVED, DRSG APPLIED, CDI TO SITE. CALL LIGHT WITHIN REACH.
--- NOTE | 2020-01-12 22:17 | NUR ---
NEW IV CATH ESTABLISHED TO LT. WRIST AREA, SIZE 22 GAUGE. FLUSHING WELL. PT. ASSISTED W/ BED BATH, REPOSITIONED AND MADE COMFORTABLE. IV ALBUMIN STARTED PER ORDERS. PT. SITTING UPRIGHT, FULL FOWLERS IN BED. DENIES ANY PAIN OR DISCOMFORT AT THIS TIME. CALL LIGHT PLACED WITHIN REACH.
--- NOTE | 2020-01-13 01:35 | NUR ---
PT. SLEEPING AT THIS TIME. NO COMPLAINTS THUS FAR. IV SITE REMAINS INTACT.
[2020-01-13 05:59] VITALS: BP 90/61
--- NOTE | 2020-01-13 06:36 | NUR ---
PT. RESTING QUIETLY. NO COMPLAINTS THIS AM. IV SITE INTACT. ALBUMIN INFUSING AT THIS TIME. CALL LIGHT WITHIN REACH. WILL ENDORSE PT. CARE OVER TO INCOMING NURSE.
[2020-01-13 06:39] LABS: CHLORIDE SERUM 98 mmol/L (98-107); CREATININE SERUM 1.1 mg/dL (0.6-1.0); GLUCOSE SERUM 118 mg/dL (74-106); POTASSIUM SERUM 4.5 mmol/L (3.5-5.1); SODIUM SERUM 128 mmol/L (136-145)
[2020-01-13 06:48] LABS: BASOPHIL % 0.6 % (0-2)
--- NOTE | 2020-01-13 08:00 | NUR ---
RECEIVED PT IN BED A/A/OX4 DENIES WILL. RESP EVEN AND UNLABORED WITH DIMINISHED BS BILAT. OCC PRODUCTIVE COUGH. PT HAD EPISODES OF NOSE BLEEDING LAST NIGHT NONE THIS AM. NOTED WITH SOME DRY BLOOD IN NARES. DENIES ANY CP/PRESSURE AT THIS TIME. NOTED WITH GENERALIZED EDEMA, +3 EDEMA TO BLE UP TO LOWER BACK, +2 TO BUE, AND TRACE TO +1 TO TORSO. LARGE ECCHYMOSIS AREAS TO BUE, ECCHYMOSIS TO BLE. NOTED WITH WEAPING SKIN TEAR TO RT FOOT, DRSG IN PLACE WITH SEROUS DRAINAGE. DENIES ANY PAIN DISCOMFORT. STRESS INCONTINENCE. ABLE TO ASSIST WITH REPOSITIONING. MILD BLANCHABLE REDNESS TO RT BUTTOCK. CALL LIGHT IN REACH NEEDS ATTENDED TO.
[2020-01-13 08:15] VITALS: BP 97/63
[2020-01-13 09:08] LABS: RED CELL DISTRIBUTION WIDTH 19.3 % (11.5-14.5)
--- NOTE | 2020-01-13 09:10 | NUR ---
MANUFACTURING SHIFT SUPERVISOR JOCE CALLED AND MADE AWARE OF CRITICAL RESULTS PLT 14. MANUFACTURING SHIFT SUPERVISOR ALSO AWARE OF NA 128 DROP FROM YESTERDAY. PER MANUFACTURING SHIFT SUPERVISOR WILL ORDER 1 UNIT PLT. CONT TO MONITOR.
[2020-01-13 09:13] LABS: PLATELET COUNT 14 x10^3mcL (130-400)
--- NOTE | 2020-01-13 12:26 | NUR ---
PHYSICAL THERAPY NOTE PHYSICAL THERAPY EVAL ON HOLE SECONDARY TO CRITICALLY LOW PLATELETS 14. CONTRAINDICATED FOR MOBILITY ASSESSMENT AT THIS TIME. TO FOLLOW UP FOR EVAL PT BE STABLE MEDICALLY.TO COMPLY
--- NOTE | 2020-01-13 16:47 | NUR ---
PLT AVAILABLE FOR TRANSFUSION AFTER ALBUMIN DOSE COMPLETED. OBTAINED VS AND MADE PT AWARE OF REPORTABLE S/SX OF TRANSFUSION REACTION. STARTED INFUSION AT 50ML/HR. REMAIN WITH PT AT BEDSIDE. PROVIDED PERSONAL CARE AND DRSG CHANGED TO WEAPING WOUND TO RT FOOT. 1702: AFTER 15 MIN PT ASSYMPTOMATIC VSS STABLE. INCREASED INFUSION TO INFUSE OVER LESS THAN 1 HR AT TOLERATED.
--- NOTE | 2020-01-13 17:45 | NUR ---
TRANFUSION COMPLETED. NO ADVERSE REACTIONS NOTED. VSS. PT C/O RT MILD ABD PAIN. CLINICAL LAB ASSISTANT MUTUC CALLED AND MADE AWARE OF DISCOMFORT WITH NO PAIN MEDS. CLINICAL LAB ASSISTANT STATED SHE WILL ORDER MEDICAITON MADE AWARE OF LATEST B/P.
[2020-01-13 17:50] VITALS: BP 99/57
--- NOTE | 2020-01-13 18:10 | NUR ---
PT MEDICATED WITH TRAMADOL PO FOR ABD PAIN 01/09. CALL LIGHT IN REACH NEEDS ATTENDED TO. PT DENIED ANY OTHER DISOCMFORT. [place]ES ELEVATED. WITH RLE ELEVATED. MAINTAINED DROPLET PRECAUTIONS. COVID-19 PENDING.
[2020-01-13 19:41] VITALS: BP 116/69
--- NOTE | 2020-01-13 19:43 | NUR ---
RECIEVED PT FROM PREVIOUS SHIFT NURSE. PT RESTING IN BED, AOX4, ABLE TO FOLLOW COMMANDS, SPEECH CLEAR, AND NO FACIAL DROOPING NOTED. PT DENIES WILL,N/V, AND PAIN AT THE MOMENT. PT CALM AND COOPERATIVE AT THE MOMENT. RR EVEN AND UNLABORED ON RA, CHEST RISING EQUALLY, DENIES SOB OR DIFFICULTY BREATHING. NO SIGNS OF ACUTE DISTRESS NOTED. IV LH WNL, NO ERYTHEMA, EDEMA, OR DRAINAGE NOTED. COUGH NOTED, NOT ABLE TO EXPECTORATE. R FOOT DRESSING CDI, HEEL ELEVATED WITH PILLOWS JOHN. BED IN LOWEST POSITION AND CALL LIGHT WITHIN REACH. WILL CONTINUE TO MONITOR.
--- NOTE | 2020-01-13 23:50 | NUR ---
L FOOT DRESSING CHANGED. PT TOLERATED WELL. MINIMAL SEROUS DRAINAGE AND NO ODOR NOTED. WILL CONTINUE TO MONITOR.
--- NOTE | 2020-01-14 00:57 | NUR ---
PT RESTING IN BED, EASILY AROUSABLE. RR EVEN AND UNLABORED ON RA, CHEST RISING EQUALLY. NO SIGNS OF ACUTE DISTRESS NOTED. BED IN LOWEST POSITION AND CALL LIGHT WITHIN REACH. WILL CONTINUE TO MONITOR.
[2020-01-14 06:33] VITALS: BP 109/61
[2020-01-14 06:51] LABS: BASOPHIL % 0.4 % (0-2)
--- NOTE | 2020-01-14 06:54 | NUR ---
PT RESTING IN BED, EASILY AROUSABLE. RR EVEN AND UNLABORED ON RA, CHEST RISING EQUALLY. NO SIGNS OF ACUTE DISTRESS NOTED. HOB ELEVATED. BED IN LOWEST POSITION AND CALL LIGHT WITHIN REACH. WILL ENDORSE CARE TO ONCOMING SHIFT NURSE, AND WILL CONTINUE TO MONITOR.
[2020-01-14 07:06] LABS: CALCIUM 8.3 mg/dL (8.5-10.1); CHLORIDE SERUM 97 mmol/L (98-107); CREATININE SERUM 1.1 mg/dL (0.6-1.0); GLUCOSE SERUM 91 mg/dL (74-106); POTASSIUM SERUM 4.6 mmol/L (3.5-5.1); SODIUM SERUM 129 mmol/L (136-145)
[2020-01-14 07:23] LABS: RED CELL DISTRIBUTION WIDTH 19.8 % (11.5-14.5)
[2020-01-14 08:30] VITALS: BP 107/63
--- NOTE | 2020-01-14 08:30 | NUR ---
PT SEEN AT BEDSIDE. PT AOX4, FOLLOWS COMMANDS, SPEECH CLEAR, PERRLA, DENIES HEADACHE. RESP E/U ON RA, EQUAL CHEST RISE, LUNGS CLEAR TO BUL AND DIM TO BLL, DRY COUGH NOTED, O2 SAT: 95%, DENIES SOB. NON-PITTING EDEMA TO BUE, +3 EDEMA TO BLE, DIFFUSE ECCHYMOSIS TO BUE/BLE, DRESSING TO R FOOT CDI. ABD ROUND/FIRM, BS ACTIVE X4, DENIES ABD MADRIGAL OR N/V. IV TO L WRIST PATENT/INTACT, RUNNING KVO AT THIS TIME. BED IN LOWEST POSITION AND CALL LIGHT WITHIN REACH. DROPLET PRECAUTIONS MAINTAINED. WILL CONTINUE TO MONITOR.
--- NOTE | 2020-01-14 09:00 | NUR ---
RECEIVED SECOND COVID-19 LAB. RESULT NEGATIVE. PT TAKEN OFF DROPLET PRECAUTIONS AT THIS TIME.
[2020-01-14 10:24] LABS: PLATELET COUNT 39 x10^3mcL (130-400)
--- NOTE | 2020-01-14 11:56 | NUR ---
PT SITTING AT BEDSIDE CHAIR, AOX4, RESP E/U ON RA. NO ACUTE DISTRESS NOTED AT THIS TIME. BED IN LOWEST POSITION AND CALL LIGHT WITHIN REACH. WILL CONTINUE TO MONITOR.
[2020-01-14 16:22] VITALS: BP 118/68
--- NOTE | 2020-01-14 17:30 | NUR ---
PT SEEN AT BEDSIDE. DRESSING TO R FOOT SATURATED W/ NON ODOROUS SEROUS-SANGUINOUS DRAINAGE. WOUND CARE DONE. SKIN TEAR TO R FOOT CLEANSED W/ NS, NON-ADHESIVE DRESSING APPLIED, FOLLOWED BY 4X4 GAUZE, SECURED W/ KERLIX. EXTREMITY ELEVATED ON PILLOW, PT DENIES PAIN TO SITE. WILL CONTINUE TO MONITOR.
--- NOTE | 2020-01-14 18:27 | NUR ---
PT SITTING UPRIGHT IN BED HAVING DINNER, AOX4, RESP E/U ON RA. NO ACUTE DISTRESS NOTED. IV TO L WRIST W/ NO ERYTHEMA/EDEMA. DRESSING TO R FOOT CDI. BED IN LOWEST POSITION AND CALL LIGHT WITHIN REACH. WILL ENDORSE TO ONCOMING NURSE.
--- NOTE | 2020-01-14 20:00 | NUR ---
PATIENT RECEIVED AWAKE, ALERT, ORIENTED X4 IN BED. RESPIRATION EVEN AND UNLABORED, BREATH SOUNDS DIMINISHED ON THE BASES, ON ROOM AIR. SALINE LOCK TO LT WRIST. +3 NONPITTING EDEMA TO BUE AND BLE. NO GI DISCOMFORT NOTED, LBM 01/12. VOIDING FREELY, INCONTINENT AT TIMES. GENERALIZED WEAKNESS, NEEDS ASSISTANCE WITH ADL'S. BLISTER TO R FOOT, SKIN TEAR TO R DORSAL FOOT, ECCHYMOSIS TO BUE/BLE. ASSISTED WITH NEEDS. WILL CONTINUE TO MONITOR.
[2020-01-14 20:05] VITALS: BP 109/65
[2020-01-15 06:40] LABS: CALCIUM 8.4 mg/dL (8.5-10.1); CARBON DIOXIDE 20.8 mmol/L (21-32); CHLORIDE SERUM 98 mmol/L (98-107); CREATININE SERUM 1.1 mg/dL (0.6-1.0); GLUCOSE SERUM 90 mg/dL (74-106); POTASSIUM SERUM 4.9 mmol/L (3.5-5.1); SODIUM SERUM 129 mmol/L (136-145)
--- NOTE | 2020-01-15 06:45 | NUR ---
PATIENT RESTING IN BED. RESPIRATION EVEN AND UNLABORED, ON O2 2L PER NASAL CANNULA. IV SITE PATENT AND INTACT. INCONTINENT OF URINE. KEPT CLEAN AND DRY. ASSISTED WITH NEEDS. SAFETY OBSERVED. PLACED BED IN THE LOWEST POSITION.
--- NOTE | 2020-01-15 07:20 | NUR ---
RECEIVED PATIENT FROM NIGHT NURSE, ALERT AND OREINTED X 4, THAI SPEAKING, ABLE TO VERBALIZE NEEDS, NO C/O PAIN OR DISCOMFORT AT THIS TIME, LUNG SOUNDS DIMINISHED AT BASES JOHN, ON O2 2LPM VIA NC, GENERALIZED WEAKNESS ABLE TO TRANSFER TO BEDSIDE COMMODE WITH ASSISTANCE, SALINE LOCK IN PLACE ON L WRIST, DENIES CHECT PAIN, BLISTER ON R FOOT DRESSING INTACT, DRESSING ON R DORSAL FOOT INTACT, PEDAL PULSES PRESENT, +3 PITTONG EDEMA IN ALL EXTREMETIES, PATIENT VOIDS IN BEDSIDE COMMODE, PATIENT PLEASANT AND COOPERATIVE
[2020-01-15 08:10] VITALS: BP 116/53
[2020-01-15 09:22] LABS: BASOPHIL % 1.6 % (0-2)
[2020-01-15 09:27] LABS: RED CELL DISTRIBUTION WIDTH 20.6 % (11.5-14.5)
--- NOTE | 2020-01-15 09:29 | NUR ---
TELEPHONE CALL FROM JUDITH IN LAB TO REPORT CRITICAL LAB VALUE, PLATELETS 16 WILL NOTIFY OF VALUE
--- NOTE | 2020-01-15 09:40 | NUR ---
TELEPHONE CALL FROM DAUGHTER IN LAW TO INQUIRE ABOUT PATIENTS STATUS, PROVIDED HER WITH UPDATE, WILL NOTIFY HER IF THERE ARE ANY CHANGES
[2020-01-15 09:54] LABS: PLATELET COUNT 18 x10^3mcL (130-400)
--- NOTE | 2020-01-15 09:54 | NUR ---
MARKETING DIRECTOR ASSISTED [facility] [place] PER PHONE. NOTIFIED OF PLETELET LEVEL OF 16. SHE WILL CONSIDER TRANSFUSION OF PLATELETS.
[2020-01-15 09:56] LABS: rbc morphology (normal/abnorm) ABNORMAL (NORMAL)
[2020-01-15 12:02] VITALS: BP 127/91
[2020-01-15 13:44] VITALS: BP 108/67
[2020-01-15 15:47] VITALS: BP 103/68
--- NOTE | 2020-01-15 15:47 | NUR ---
COMMENCED TRANSFUSION OF 1 UNITS PLATELETS FOR PLATELET LEVEL OF 18.
[2020-01-15 16:05] VITALS: BP 105/68
--- NOTE | 2020-01-15 16:06 | NUR ---
TRANSFUSION OF PLATELETS IN PROGERESS. VSS. AFEBRILE. ON O2 VIA NC AT 2L. O2 SAT 98%. PATIENT MADE COMFORTABLE.
--- NOTE | 2020-01-15 18:31 | NUR ---
PATIENT LAYING COMFORTABLY IN BED NO S/SX OF DISTRESS, HAD JUST HAD LARGE BBM ON COMMODE, WILL ENDORSE TO NIGHT NURSE
--- NOTE | 2020-01-15 18:49 | NUR ---
I UNIT OF PLATELETS TRANFUSION COMPLETE BP 122/77 FL 91 T 98.0 NO DISTRESS OR SOB NOTED
--- NOTE | 2020-01-15 19:30 | NUR ---
PT RECIEVED FROM DAY NURSE. PT RESTING IN BED AT THIS TIME. DENIES PAIN OR DISCOMFORT. PT BREATHING E/U ON 2L NC AT THIS TIME. PT M/S DENIES CP, NV, DIZZINESS, OR PALPATATIONS. PALPABLE PULSES, EDEMA NOTED TO BUE AND BLE PITTING. ABD SOFT AND ROUND, DENIES PAIN TO PALPATION. GEN WEAKNESS, PT ABLE TO TURN AND REPOSITION SELF, AMBUALTES WITH ASSIST. R FOOT SKIN TEAR, COVERED WITH DRESSING CDI. IV TO L WRIST, CDI AND INTACT AND INFUSING. BED AT LOWEST POSITION. CALL LIGHT WITHIN REACH. WILL CONTINUE TO MONITOR.
[2020-01-15 20:46] VITALS: BP 112/69
--- NOTE | 2020-01-16 | NUR ---
PT RESTING IN BED AT THIS TIME. DENIES PAIN OR DISCOMFORT. PT BREATHING E/U ON 2L NC. NO S/S OF ACUTE DISTRESS NOTED AT THIS TIME. BED AT LOWEST POSITION. CALL LIGHT WITHIN REACH. WILL CONTINUE TO MONITOR.
[2020-01-16 05:15] VITALS: BP 119/81
--- NOTE | 2020-01-16 07:33 | NUR ---
RECEIVED PATIENT. IN BED, AAOX4. NO ACUTE RESP DISTRESS NOTED. REMAINS ON 2L NC FOR COMFORT. NO C/O PAIN AT THIS TIME. IV INTACT AND PATENT. GENERALIZED +3 BODY EDEMA NOTED. SAFETY PRECAUTION IN PLACE. CALL LIGHT WITHIN REACH. PATIENT REFUSED LAB THIS MORNING. PATIENT STATES WANTING TO GO HOME. INFORMED PATIENT ABOUT GOALS FOR TODAY. PATIENT VERBALIZED UNDERSTANDING. ALL BELONGINGS WITHIN REACH. WILL CONTINUE TO MONITOR.
[2020-01-16 09:21] VITALS: BP 105/76
--- NOTE | 2020-01-16 09:42 | NUR ---
PATIENT CONVINCED TO DO LAB DRAW. LAB MADE AWARE. WILL CONTINUE TO MONITOR. LACTULOSE PO GIVEN FOR CONSTIPATION. PATIENT STABLE. NO ACUTE RESP DISTRESS NOTED. NO C/O PAIN AT THIS TIME. EDUCATED ABOUT IMPORTANCE OF LAB DRAW. PATIENT VERBALIZED UNDERSTANDING. SAFETY PREC IN PLACE. CALL LIGHT WITHIN REACH. WILL CONTINUE TO MONITOR.
--- NOTE | 2020-01-16 10:15 | NUR ---
PATIENT IN BED, STABLE. NO ACUTE DISTRESS NOTED. NO C/O PAIN AT THIS TIME. PATIENT HAD INCONTINENCE X1. ASSISTED PATIENT WITH PERINEAL CARE WITH BOMB SQUAD OFFICER. PATIENT TOLERATED ACTIVITY WELL. SAFETY PRECAUTION IN PLACE. ALL BELONGINGS WITHIN REACH. WILL CONTINUE TO MONITOR.
[2020-01-16 10:37] LABS: BASOPHIL % 0.9 % (0-2)
[2020-01-16 10:38] LABS: CALCIUM 8.4 mg/dL (8.5-10.1); CARBON DIOXIDE 21.5 mmol/L (21-32); CHLORIDE SERUM 96 mmol/L (98-107); CREATININE SERUM 1.3 mg/dL (0.6-1.0); GLUCOSE SERUM 144 mg/dL (74-106); POTASSIUM SERUM 5.1 mmol/L (3.5-5.1); SODIUM SERUM 129 mmol/L (136-145)
[2020-01-16 10:39] LABS: RED CELL DISTRIBUTION WIDTH 21.4 % (11.5-14.5)
[2020-01-16 11:10] LABS: rbc morphology (normal/abnorm) ABNORMAL (NORMAL); target cell (codocyte) 1+; tear drop cell (dacryocyte) 1+
[2020-01-16 11:11] LABS: PLATELET COUNT 33 x10^3mcL (130-400)
--- NOTE | 2020-01-16 11:13 | NUR ---
SPOKE WITH SUKHWINDER SHEPPARD REGARDING CURRENT LAB VALUES WBC 13.1, PLATELET 33, NA 129, BUN 51.0, CR 1.3, MAGNESIUM 2.6. NO NEW ORDERS AT THIS TIME. PER VALARIE, SHE WILL BE DISCHARGED TODAY WITH HOSPICE. WILL CONTINUE TO MONITOR.
[2020-01-16] MEDS ORDERED: LAC15L PO (11:22)
--- NOTE | 2020-01-16 11:30 | NUR ---
SPOKE WITH DENNY FROM CASE MANAGEMENT. PER DENNY, PATIENT WILL BE DISCHARGED WITH HOSPICE AND DAUGHTER WILL COME PICK HER UP. WHEELCHAIR WILL ALSO BE GIVEN TO PATIENT. PATIENT MADE AWARE. WILL CONTINUE TO MONITOR.
[2020-01-16 11:44] VITALS: BP 105/76
--- NOTE | 2020-01-16 12:45 | NUR ---
PATIENT IN BED, EATING LUNCH. NO ACUTE DISTRESS NOTED. NO C/O PAIN AT THIS TIME. WOUND CARE PROVIDED TO RIGHT FOOT, DRESSING C/D/I. PATIENT TOLERATED ACTIVITY WELL. PATIENT TOLERATED ACTIVITY WELL. SAFETY PRECAUTION IN PLACE. ALL BELONGINGS WITHIN REACH. CALL LIGHT WITHIN REACH. WILL CONTINUE TO MONITOR.
[2020-01-16 13:31] VITALS: BP 109/68
--- NOTE | 2020-01-16 14:00 | NUR ---
SPOKE WITH FAMILY REGARDING PLAM FOR DISCHARGE. ALL QUESTIONS AND CONCERNS ADDRESSED. PER FAMILY, THET WILL COME SALESPERSON SHOES PATIENT AT 1500. PATIENT MADE AWARE. WILL CONTINUE TO MONITOR PRIOR TO DISCHARGE.
--- NOTE | 2020-01-16 14:40 | NUR ---
DISCHARGE HOME INSTRUCTIONS GIVEN TO PATIENT. HUNGARIAN TRANSLATER AT BEDSIDE. PATIENT VERBALIZED UNDERSTANDING. ALL QUESTIONS AND CONCERNS ADDRESSED. D/C IV, TOLERATED WELL. CATHETER INTACT. APPLIED PRESSURE. GAUZE AND TAPE IN PLACE. ID BANDS REMOVED. FARM BOSS WILL ASSIST PATIENT. PER FAMILY, THEY WILL CALL AROUND 1500 TO HOG KILLER PATIENT.
--- NOTE | 2020-01-16 16:15 | NUR ---
PATIENT IS BEING DISCHARGED IN STABLE CONDITION. NO ACUTE DISTRESS NOTED. ALL BELONGINGS SENT HOME WITH PATIENT. ALL NEEDS MET. ACCOMPANIED TO LOBBY BY RESOURCE RN AND MANAGER PEOPLE VIA WHEELCHAIR.
== END 2020-01-16 16:55 | disposition home or self-care (01) | DRG 435 ==
LOC: ED 07:48 → DU 10:14 → MU 10:14 → DU 10:53 → MU 01-09 14:31
PROVIDERS: Emergency Medicine; Internal Medicine Nephrology; Nurse Practitioner; Student in an Organized Health Care Education/Training Program; ADMIT Family Medicine
PROC: 30233R1 Transfusion of Nonautologous Platelets into Peripheral Vein, Percutaneous Approach (ICD-10-PCS; principal; 2020-01-11)
DX: C78.7 Secondary malignant neoplasm of liver and intrahepatic bile duct (principal); J18.9 Pneumonia, unspecified organism; I26.99 Other pulmonary embolism without acute cor pulmonale; R18.0 Malignant ascites; E87.2 Acidosis; E22.2 Syndrome of inappropriate secretion of antidiuretic hormone; I24.8 Other forms of acute ischemic heart disease; N17.9 Acute kidney failure, unspecified; I12.0 Hypertensive chronic kidney disease with stage 5 chronic kidney disease or end stage renal disease; C80.1 Malignant (primary) neoplasm, unspecified; D69.59 Other secondary thrombocytopenia; I95.9 Hypotension, unspecified; E87.5 Hyperkalemia; R60.0 Localized edema; N18.9 Chronic kidney disease, unspecified; E11.22 Type 2 diabetes mellitus with diabetic chronic kidney disease; R04.0 Epistaxis; Z79.899 Other long term (current) drug therapy; Z79.01 Long term (current) use of anticoagulants; Z79.84 Long term (current) use of oral hypoglycemic drugs; Z68.27 Body mass index [BMI] 27.0-27.9, adult; Z88.6 Allergy status to analgesic agent
CPT/HCPCS: 82962; 83880; 85378; 97110-GP; 97116-GP; 97530-GP; G0378; J0456; J0696; J1815; J1940; J2270; J7030; J7050; P9035; P9047; Q0092; Q0163